=== PATIENT | female | born 1985 | race Caucasian/White ===

== ENCOUNTER → 2023-10-16 | Outpatient (CLI) | payer OTHER ==
--- NOTE | 2023-10-16 13:43 | XR ---
EXAMINATION TYPE: XR lumbosacral spine 5V DATE OF EXAM: 10/16/2023 Comparison: None Clinical History: 38-year-old female M54.9 DORSALGIA, UNSPECIFIED Findings: 5 lumbar type vertebral bodies. Mild facet arthropathy lower lumbar spine. Vertebral body heights and disc interspaces are maintained. Vertebral body heights are preserved. Impression: Mild facet arthropathy lower lumbar spine. No vertebral compression collapse or malalignment.
== END | disposition home or self-care (01) ==
LOC: RADXRMAIN 11:40
PROVIDERS: ATTEND Pediatrics
DX: M47.816 Spondylosis without myelopathy or radiculopathy, lumbar region (principal)
CPT/HCPCS: 72110